=== PATIENT | male | born 1995 | race Hispanic/Latino ===

== ENCOUNTER 2019-11-20 19:56 | Observation (INO) | payer OTHER, SELFPAY ==
[~2019-11-20 19:56] MED LIST: Dexamethasone 20 MG/5 ML VIAL ONE; Ketorolac Tromethamine 30 MG/ML VIAL ONE; Lidocaine 1% PF 5 ML VIAL ONE; Ondansetron PF 4 MG/2 ML Vial ONE; PROPOFOL 200 MG/20 ML VIAL ONE; Rocuronium Bromide 10 MG/ML (10ML VIAL) ONE; Succinylcholine Chloride 20 MG/ML 10 ml SYRINGE FS ONE
[2019-11-20] MEDS ORDERED: Bupivacaine PF 0.5% 30 ML VIAL ONE (20:11)
[2019-11-20] MEDS ORDERED: Bacitracin Zinc Ointment 30 gm TUBE ONE (20:11)
[2019-11-20] MEDS ORDERED: Sodium Chloride 0.9% 40 ML ONE (20:11)
[2019-11-20] MEDS ORDERED: Fentanyl 100 MCG/2 ML VIAL ONE (20:32)
[2019-11-20] MEDS ORDERED: Midazolam HCl 2 mg/2 ml Vial ONE (20:37)
[2019-11-20] MEDS ORDERED: Ondansetron PF 4 MG/2 ML Vial SLOW IVP PRN (21:01)
[2019-11-20] MEDS ORDERED: Morphine 4 MG/ML VIAL SLOW IVP PRN (21:01)
[2019-11-20] MEDS ORDERED: Fentanyl 100 MCG/2 ML VIAL SLOW IVP PRN (21:01)
[2019-11-20] MEDS ORDERED: Acetaminophen 325 MG TAB PO PRN (21:01)
[2019-11-20] MEDS ORDERED: Bisacodyl 10 MG SUPP PR PRN (21:01)
[2019-11-20] MEDS ORDERED: Promethazine HCl 25 MG/ML VIAL IM PRN (21:01)
[2019-11-20] MEDS ORDERED: HYDROcodone/Acetaminophen 5/325 mg Tablet PO PRN (21:01)
[2019-11-20] MEDS ORDERED: traMADol HCl 50 MG TAB PO PRN (21:01)
[2019-11-20] MEDS ORDERED: Meperidine HCl/PF 25 MG/ML VIAL IM PRN (21:03)
[2019-11-20] MEDS ORDERED: Communication Order-Pharmacy FS SCH (21:15)
[2019-11-20] MEDS ORDERED: Sodium Chloride 0.9% 1,000 ML IV SCH (21:30)
[2019-11-20] MEDS ORDERED: TETANUS AND DIPHTHERIA TOX/PF 0.5 ML DISP.SYRIN IM SCH (22:00)
[2019-11-20] MEDS ORDERED: Meperidine HCl/PF 25 MG/ML VIAL SLOW IVP PRN (22:07)
[2019-11-20] MEDS ORDERED: Promethazine HCl 25 MG/ML VIAL SLOW IVP PRN (22:07)
[2019-11-20] MEDS ORDERED: Ondansetron HCl/PF 4 MG/2 ML Vial IVP PRN (22:07)
[2019-11-20] MEDS ORDERED: HYDROmorphone 2 MG/ML VIAL SLOW IVP PRN (22:07)
[2019-11-20 23:54] VITALS: BMI 25.2
[2019-11-21] MEDS: Ketorolac Tromethamine 30 MG/ML VIAL IVP SCH ×2 (00:32→05:15)
[2019-11-21] MEDS: Vancomycin 1 GM in Premix Bag 1 BAG IVPB SCH ×2 (00:32→10:00)
--- NOTE | 2019-11-21 00:43 | OP ---
DATE OF PROCEDURE: 11/20/2019 PREOPERATIVE DIAGNOSES: 1. Left index finger open proximal phalanx neck/head fracture. 2. Left base of middle phalanx frontal plane split intra-articular fracture with central slip laceration. 3. Longitudinal extensor tendon laceration, zone 4. 4. Open proximal phalanx. POSTOPERATIVE DIAGNOSES: 1. Left index finger open proximal phalanx neck/head fracture. 2. Left base of middle phalanx frontal plane split intra-articular fracture with central slip laceration. 3. Longitudinal extensor tendon laceration, zone 4. 4. Open proximal phalanx. PROCEDURES PERFORMED: 1. Debridement of material associated with open fracture. 2. Debridement of open joint, proximal phalangeal joint. 3. Repair of central slip. 4. Repair of zone 4 extensor tendon laceration, longitudinal. 5. Open reduction and internal fixation of base of the middle phalanx fracture. 6. Open reduction and internal fixation of intra-articular head and neck fracture, sagittal plane split, proximal phalanx fracture. 7. Closure of wound, 4 cm. ESTIMATED BLOOD LOSS: 10 mL. TOURNIQUET TIME: 46 minutes. C-ARM USE: Yes. INDICATIONS FOR PROCEDURE: The patient came to the operating room after having only ER level work where he clearly had open fractures of both aspects of the joint, open joint, extensor tendon laceration with possible contamination. Thus, the procedures listed above were indicated. DESCRIPTION OF PROCEDURE: After successful general endotracheal anesthesia, the limb was prepped and draped. The patient had the time-out done appropriately. He was given a total of 20 mL of 0.5% Marcaine, and we exsanguinated the limb and inflated tourniquet to 250 mmHg pressure. The patient then had the incision extended 1 cm distal and 1.5 cm proximal. We saw extended wounds. There were minimal small specks of dirt contamination in subcutaneous, but no true visible debris in the joint. First, we debrided the joint, the fracture both at the head/neck junction of the proximal phalanx and the base of the articular surface frontal plane split at the middle phalanx using a curette, Ruby blade, 11-blade knife, tenotomy scissors, and Adson's. We irrigated with a total of 3 L of normal saline and Pulsavac pressure with antibiotics inside, and we used excisional technique. The depth was down to the base of the joint all way till we could see the volar plate throughout the entire length of the fracture till it was completely clean. We also debrided some of the wound edges with tenotomy scissors in excisional technique. Then, we finished the irrigation and began repair. First, we placed the chondral surface back almost anatomically where there was a sagittal plane split of 50% articular surface, a small amount of bone and we placed the 2 K-wires parallel to each other at the junction of the chondral and osteochondral junction. Cut these wires as flat as possible, and with extension of the joint, there was no impingement. We then reduced anatomically the articular surface distally and proximally on the interphalangeal joint/base of the middle phalanx. Held this with a provisional fixation with a tenaculum clamp and then passed a K-wire obliquely, 1.0 Wire across the fracture and then placed another screw just articular, slightly angulated back distally. This gave excellent reduction intra-articularly visibly, clinically and radiographically for both sites. We cut the wires short as possible and then released the tourniquet to obtain hemostasis. We then closed the extensor mechanism with a running 4-0 Prolene on RB1 needle in a [id number] pattern, buried. There was excellent apposition of tendon. We further obtained hemostasis, irrigated again with 1 L of normal saline with bulb syringe pressure, and then closed the incision because the wound was very clean at the end using 4-0 nylon simple pattern. We closed one part of the ulnar remnant joint capsule over the proximal phalanx neck, was approximately 3 mm area wide, which we closed with a 4-0 interrupted undyed Vicryl. The patient had the small abrasions on the ring finger, on the middle finger clean, but there was not any abnormality. Radiographs confirmed no fracture here. The patient had a final radiographs taken and left the operating room without evidence of anesthetic or operative complications. Job ID: [id number]
--- NOTE | 2019-11-21 07:41 | RAD ---
7 intraoperative images of the left hand: 11/21/2019 COMPARISON: None HISTORY: ORIF FINDINGS: Multiple images demonstrate placement of fixation screws centered at the proximal interphal angeal joint. IMPRESSION: ORIF as above.
[2019-11-21 08:20] VITALS: TEMP 97.7
[2019-11-21] MEDS ORDERED: Aspirin 81 mg Enteric Coated Tablet PO SCH (09:00)
[2019-11-21 09:23] VITALS: BP 108/57
[2019-11-22] MEDS ORDERED: Ketorolac Tromethamine 30 MG/ML VIAL IVP PRN (06:00)
== END 2019-11-21 11:36 | disposition home or self-care (01) ==
LOC: ERS 19:56 → ONC 20:49 → SDC/OP 20:53 → ONC 21:01
PROVIDERS: ADMIT Orthopaedic Surgery Hand Surgery; ATTEND Orthopaedic Surgery Hand Surgery
PROC: 0LQ80ZZ Repair Left Hand Tendon, Open Approach (ICD-10-PCS; principal; 2019-11-20)
PROC: 0PSV04Z Reposition Left Finger Phalanx with Internal Fixation Device, Open Approach (ICD-10-PCS; 2019-11-20)
PROC: 0PSV04Z Reposition Left Finger Phalanx with Internal Fixation Device, Open Approach (ICD-10-PCS; 2019-11-20)
DX: S67.191A Crushing injury of left index finger, initial encounter (principal); S62.611B Displaced fracture of proximal phalanx of left index finger, initial encounter for open fracture; S62.621B Displaced fracture of middle phalanx of left index finger, initial encounter for open fracture; S66.321A Laceration of extensor muscle, fascia and tendon of left index finger at wrist and hand level, initial encounter; X58.XXXA Exposure to other specified factors, initial encounter
CPT/HCPCS: 76000; 96361; 96365; 96366; 96375; 96376; 99284; C1713; G0378; J1100; J1885; J2250; J2405; J2704; J3010; J3370; J3490; S0020